=== PATIENT | male | born 1985 | race Two or more races ===

== ENCOUNTER 2018-01-11 06:26 | Emergency (ER) | payer OTHER | END 2018-01-11 08:22 | disposition home or self-care (01) | LOC: ER 06:26 | DX: L55.1 Sunburn of second degree (principal); Y93.89 Activity, other specified; X30.XXXA Exposure to excessive natural heat, initial encounter; Y99.8 Other external cause status; Y92.89 Other specified places as the place of occurrence of the external cause | CPT/HCPCS: 99283 ==

== ENCOUNTER 2018-05-13 16:12 | Emergency (ER) | payer OTHER ==
[~2018-05-13] VITALS: Ht 157.5 cm; Wt 72.6 kg
[~2018-05-13 16:12] MED LIST: PRED50TA PO
--- NOTE | 2018-05-13 16:55 | PHYS DOC ---
Past Medical History Past Medical History: No Pertinent History Past Surgical History: Appendectomy (2013), Other Additional Past Surgical Histo: ABD SX Alcohol Use: None Drug Use: None Adult General Chief Complaint Chief Complaint: ABDOMINAL PAIN HPI HPI Patient is a 32 year old male who presents to the ER with complaints of lower abdominal pain for the last 9 days and a cough with bloody sputum for the last week. The [employer] top cutter line was used to communicate with patient. He denies any recent nose bleeds, fever, sore throat, chest pain, shortness of breath, nausea, vomiting, diarrhea, rectal bleeding, or back pain. PT reports that his stools were normal until yesterday when he had a mucous stool with pus in it. He currently rates his pain as a 7 out of 10 on the pain scale. He denies any dysuria or hematuria, reports increased urinary frequency. He denies any recent travel outside of the [place]. Review of Systems Review of Systems Constitutional: Denies fever or chills [] HENT: Denies nasal congestion or sore throat [] Respiratory: Denies wheezing or shortness of breath, reports cough x1 week with bloody sputum Cardiovascular: Denies chest pain or palpitations GI: Denies nausea, vomiting, bloody stools or diarrhea; reports lower abdominal pain see HPI [] : Denies dysuria or hematuria, reports increased urinary frequency [] Musculoskeletal: Denies back pain or joint pain [] Integument: Denies rash or skin lesions [] Neurologic: Denies headache, focal weakness or sensory changes [] All other systems were reviewed and found to be within normal limits, except as documented in this note. Current Medications Current Medications Current Medications Medications (Trade) Dose Ordered Sig/Curtis Start Time Stop Time Status Last Admin Dose Admin Morphine Sulfate (Morphine Sulfate) 4 mg 1X ONCE 05/13/18 17:15 05/13/18 17:16 DC 05/13/18 17:02 4 MG Ondansetron HCl (Zofran) 4 mg 1X ONCE 05/13/18 17:15 05/13/18 17:16 DC 05/13/18 17:00 4 MG Sodium Chloride 1,000 ml @ 1,000 mls/hr 1X ONCE 05/13/18 17:00 05/13/18 17:59 DC 05/13/18 17:00 1,000 MLS/HR Allergies Allergies Allergies Coded Allergies Type Severity Reaction Last Updated Verified No Known Drug Allergies 01/11/18 No Physical Exam Physical Exam Constitutional: Well developed, well nourished, no acute distress, non-toxic appearance. [] HENT: Normocephalic, atraumatic, bilateral external ears normal, nose normal. [] Eyes: PERRLA, conjunctiva normal, no discharge. [] Cardiovascular:Heart rate regular rhythm, no murmur [] Lungs & Thorax: Bilateral breath sounds clear to auscultation [] Abdomen: Bowel sounds normal, soft, no masses, no pulsatile masses; lower abdominal tenderness to palpation [] Skin: Warm, dry, no erythema, no rash. [] Extremities: No cyanosis, no clubbing, ROM intact, no edema. [] Neurologic: Alert and oriented X 3, normal motor function, normal sensory function, no focal deficits noted. [] Psychologic: Affect normal, judgement normal, mood normal. [] Current Patient Data Vital Signs Vital Signs Date Time Temp Pulse Resp B/P (MAP) Pulse Ox O2 Delivery O2 Flow Rate FiO2 05/13/18 19:01 72 16 117/73 (88) 98 Room Air 05/13/18 16:29 97.8 97.8 Lab Values Laboratory Tests Test 05/13/18 16:45 05/13/18 16:55 White Blood Count 9.7 x10^3/uL (4.0-11.0) Red Blood Count 5.91 x10^6/uL (4.30-5.70) H Hemoglobin 17.5 g/dL (13.0-17.5) Hematocrit 49.4 % (39.0-53.0) Mean Corpuscular Volume 84 fL (79-100) Mean Corpuscular Hemoglobin 30 pg (25-35) Mean Corpuscular Hemoglobin Concent 36 g/dL (31-37) Red Cell Distribution Width 12.7 % (11.5-14.5) Platelet Count 290 x10^3/uL (140-400) Neutrophils (%) (Auto) 63 % (31-73) Lymphocytes (%) (Auto) 22 % (24-48) L Monocytes (%) (Auto) 11 % (0-9) H Eosinophils (%) (Auto) 3 % (0-3) Basophils (%) (Auto) 1 % (0-3) Neutrophils # (Auto) 6.2 x10^3uL (1.8-7.7) Lymphocytes # (Auto) 2.2 x10^3/uL (1.0-4.8) Monocytes # (Auto) 1.1 x10^3/uL (0.0-1.1) Eosinophils # (Auto) 0.3 x10^3/uL (0.0-0.7) Basophils # (Auto) 0.1 x10^3/uL (0.0-0.2) Sodium Level 138 mmol/L (136-145) Potassium Level 3.6 mmol/L (3.5-5.1) Chloride Level 101 mmol/L (98-107) Carbon Dioxide Level 26 mmol/L (21-32) Anion Gap 11 (6-14) Blood Urea Nitrogen 11 mg/dL (8-26) Creatinine 0.8 mg/dL (0.7-1.3) Estimated GFR (Cockcroft-Gault) 112.0 BUN/Creatinine Ratio 14 (6-20) Glucose Level 99 mg/dL (70-99) Calcium Level 9.4 mg/dL (8.5-10.1) Total Bilirubin 0.8 mg/dL (0.2-1.0) Aspartate Amino Transferase (AST) 22 U/L (15-37) Alanine Aminotransferase (ALT) 33 U/L (16-63) Alkaline Phosphatase 106 U/L (46-116) Total Protein 8.4 g/dL (6.4-8.2) H Albumin 3.9 g/dL (3.4-5.0) Albumin/Globulin Ratio 0.9 (1.0-1.7) L Urine Collection Type Clean catch Urine Color Yellow Urine Clarity Clear Urine pH 6.5 Urine Specific H[place]t 1.025 Urine Protein Negative mg/dL (NEG-TRACE) Urine Glucose (UA) Negative mg/dL (NEG) Urine Ketones (Stick) Negative mg/dL (NEG) Urine Blood Negative (NEG) Urine Nitrite Negative (NEG) Urine Bilirubin Negative (NEG) Urine Urobilinogen Dipstick 1.0 mg/dL (0.2 mg/dL) Urine Leukocyte Esterase Negative (NEG) Urine RBC Occ /HPF (0-2) Urine WBC 0 /HPF (0-4) Urine Squamous Epithelial Cells Occ /LPF Urine Bacteria 0 /HPF (0-FEW) Urine Mucus Marked /LPF Laboratory Tests 05/13/18 16:45 Laboratory Tests 05/13/18 16:45 EKG EKG [] Radiology/Procedures Radiology/Procedures PROCEDURE: CT ABDOMEN PELVIS WO CONTRAST CT Abdomen and Pelvis without contrast History: Abdominal pain, watery and mucous stools Technique: Noncontrast CT imaging was performed of the abdomen and pelvis. Multiplanar images are reviewed. Exposure: One or more of the following individualized dose reduction techniques were utilized for this examination: 1. Automated exposure control 2. Adjustment of the mA and/or kV according to patient size 3. Use of iterative reconstruction technique. Comparison: None Findings: There is right lower lobe granuloma. Accurate evaluation of abdominal visceral organs is limited without intravenous contrast. There is no obvious abnormality of the spleen, liver, or pancreas. Gallbladder is present without obvious intraluminal abnormality by CT. There is no adrenal nodularity. No urolithiasis or hydronephrosis is identified. No significantly enlarged nodes are identified. Accurate evaluation of bowel is limited without oral contrast. Bowel is not significantly dilated. Appendix is not confidently identified if still present, no significant pericecal inflammatory type change. Wall thickening of the mid to distal sigmoid wall to the rectum is not excluded on this exam, this segment of bowel more collapsed. There is no free fluid or free air. There are a few small nonspecific mesenteric nodes most numerous right lower quadrant. Impression: 1. Mild wall thickening of the mid to distal sigmoid colon to rectum is not excluded as can be seen with mild proctocolitis although this segment of bowel collapsed, no significant inflammatory change. Appendix is not confidently identified if still present, no significant pericecal inflammatory type change. PROCEDURE: CHEST PA & LATERAL CHEST PA LATERAL dated 05/13/2018 5:27 PM. Comparison: 06/18/2015 Clinical Indication: COUGH X1 WEEK WITH BLOOD SPUTUM. Findings: PA and lateral views obtained. Heart and mediastinal contours are stable. Lung volumes are low, limiting evaluation. There are some patchy and linear opacities at the perihilar regions, unchanged. Calcified granuloma at the right lung base. No new infiltrate or pleural effusion. No pneumothorax. Impression: 1. Patchy perihilar linear opacities, similar to prior study. This could be related to recurrent atelectasis or scarring. 2. No new abnormality. [] Course & Med Decision Making Course & Med Decision Making Pertinent Labs and Imaging studies reviewed. (See chart for details) Dx: Colitis DDx: pyelonephritis, kidney stone, bowel obstruction, UTI Pt was given 1L NS, 4 mg zofran and 4 mg morphine IV in the department, he denied any pain after these medications. Prescriptions for Flagyl and Cipro written. Follow up with PCP this week, return to ER if symptoms worsen. The [facility] top cutter line was used to discuss findings and instructions with patient. Patient verbalized an understanding of home care, medications, follow- up, and return to ED instructions and was in agreement with the plan of care. [] Dragon Disclaimer Dragon Disclaimer This electronic medical record was generated, in whole or in part, using a voice recognition dictation system. Departure Departure Impression: Primary Impression: Colitis Disposition: HOME, SELF-CARE Condition: IMPROVED Referrals: CAESAR CHRISTIAN MD (PCP) Patient Instructions: Colitis Additional Instructions: Fill the prescriptions and use as directed. Follow up with your primary care doctor this week. Return to the ER if your symptoms worsen. Scripts Metronidazole (METRONIDAZOLE) 500 Mg Tablet 1 TAB PO TID, #30 TAB Prov: MANJINDER KU CLOUD SOFTWARE ENGINEER 05/13/18 Ciprofloxacin Hcl (CIPRO) 500 Mg Tablet 1 TAB PO BID, #20 TAB Prov: MANJINDER KU CLOUD SOFTWARE ENGINEER 05/13/18 MANJINDER KU [employer]D SOFTWARE ENGINEER May 13, 2018 16:55
[2018-05-13 16:59] LABS: BILIRUBIN,URINE NEGATIVE (NEG); CLARITY,URINE CLEAR; COLOR,URINE YELLOW; NITRITE,URINE NEGATIVE (NEG); PH,URINE 6.5; PROTEIN,URINE NEGATIVE (NEG-TRACE)
[2018-05-13] MEDS ORDERED: IV NORMAL SALINE 1000ML BAG 1,000 ML IV ONE (17:00)
[2018-05-13 17:02] LABS: BASO # 0.1 x10^3/uL (0.0-0.2); BASO % 1 % (0-3); EOS # 0.3 x10^3/uL (0.0-0.7); EOS % 3 % (0-3); HEMATOCRIT 49.4 % (39.0-53.0); HEMOGLOBIN 17.5 g/dL (13.0-17.5); LYMPH # 2.2 x10^3/uL (1.0-4.8); LYMPH % 22 % (24-48); MEAN CORPUSCULAR HEMOGLOBIN 30 pg (25-35); MEAN CORPUSCULAR HGB CONC 36 g/dL (31-37); MEAN CORPUSCULAR VOLUME 84 fL (79-100); MONO # 1.1 x10^3/uL (0.0-1.1); MONO % 11 % (0-9); NEUT # 6.2 x10^3uL (1.8-7.7); NEUT % 63 % (31-73); PLATELET COUNT 290 x10^3/uL (140-400); RED BLOOD COUNT 5.91 x10^6/uL (4.30-5.70); RED CELL DISTRIBUTION WIDTH 12.7 % (11.5-14.5); WHITE BLOOD COUNT 9.7 x10^3/uL (4.0-11.0)
[2018-05-13 17:07] LABS: CALCIUM 9.4 mg/dL (8.5-10.1); CREATININE 0.8 mg/dL (0.7-1.3); POTASSIUM 3.6 mmol/L (3.5-5.1)
[2018-05-13 17:08] LABS: BACTERIA,URINE 0 /HPF (0-FEW); RBC,URINE OCC /HPF (0-2); SQUAMOUS EPITHELIAL CELL,UR OCC /LPF; WBC,URINE 0 /HPF (0-4)
[2018-05-13 17:13] LABS: ALBUMIN 3.9 g/dL (3.4-5.0); ALBUMIN/GLOBULIN RATIO 0.9 (1.0-1.7); TOTAL BILIRUBIN 0.8 mg/dL (0.2-1.0); TOTAL PROTEIN 8.4 g/dL (6.4-8.2)
[2018-05-13] MEDS ORDERED: MORPHINE SULFATE 4 MG/ML VIAL. IV ONE (17:15)
[2018-05-13] MEDS ORDERED: ONDANSETRON PF 4 MG/2 ML VIAL. IV ONE (17:15)
--- NOTE | 2018-05-13 17:44 | RAD ---
CT Abdomen and Pelvis without contrast History: Abdominal pain, watery and mucous stools Technique: Noncontrast CT imaging was performed of the abdomen and pelvis. Multiplanar images are reviewed. Exposure: One or more of the following individualized dose reduction techniques were utilized for this examination: 1. Automated exposure control 2. Adjustment of the mA and/or kV according to patient size 3. Use of iterative reconstruction technique. Comparison: None Findings: There is right lower lobe granuloma. Accurate evaluation of abdominal visceral organs is limited without intravenous contrast. There is no obvious abnormality of the spleen, liver, or pancreas. Gallbladder is present without obvious intraluminal abnormality by CT. There is no adrenal nodularity. No urolithiasis or hydronephrosis is identified. No significantly enlarged nodes are identified. Accurate evaluation of bowel is limited without oral contrast. Bowel is not significantly dilated. Appendix is not confidently identified if still present, no significant pericecal inflammatory type change. Wall thickening of the mid to distal sigmoid wall to the rectum is not excluded on this exam, this segment of bowel more collapsed. There is no free fluid or free air. There are a few small nonspecific mesenteric nodes most numerous right lower quadrant. Impression: 1. Mild wall thickening of the mid to distal sigmoid colon to rectum is not excluded as can be seen with mild proctocolitis although this segment of bowel collapsed, no significant inflammatory change. Appendix is not confidently identified if still present, no significant pericecal inflammatory type change. Electronically signed by: Taz Jackson MD (05/13/2018 5:41 PM) [facility]
[2018-05-13] MEDS ORDERED: METR500T8 PO (18:31)
[2018-05-13] MEDS ORDERED: CIPR500T94 PO (18:31)
--- NOTE | 2018-05-13 18:51 | RAD ---
CHEST PA LATERAL dated 05/13/2018 5:27 PM. Comparison: 06/18/2015 Clinical Indication: COUGH X1 WEEK WITH BLOOD SPUTUM. Findings: PA and lateral views obtained. Heart and mediastinal contours are stable. Lung volumes are low, limiting evaluation. There are some patchy and linear opacities at the perihilar regions, unchanged. Calcified granuloma at the right lung base. No new infiltrate or pleural effusion. No pneumothorax. Impression: 1. Patchy perihilar linear opacities, similar to prior study. This could be related to recurrent atelectasis or scarring. 2. No new abnormality. Electronically signed by: Nicholas Alanis MD (05/13/2018 6:48 PM) [facility]
[2018-05-13 19:01] VITALS: BP 117/73
== END 2018-05-13 18:53 | disposition home or self-care (01) ==
LOC: ER 16:12
DX: K52.9 Noninfective gastroenteritis and colitis, unspecified (principal); Z90.89 Acquired absence of other organs
CPT/HCPCS: 36415; 71046; 74176; 80053; 81001; 85025; 96361; 96374; 96375; 99285; J2270; J2405; J7030

== ENCOUNTER 2019-06-15 08:21 | Emergency (ER) | payer OTHER ==
[~2019-06-15] VITALS: Ht 157.5 cm; Wt 63.5 kg
[~2019-06-15 08:21] MED LIST changes: +CIPR500T94 PO; +METR-34 PO
[2019-06-15 08:32] VITALS: BP 102/64
[2019-06-15] MEDS ORDERED: IPRATRPIUM/ALBUTEROL 0.5/2.5MG 3 ML NEBU. NEB ONE (08:45)
--- NOTE | 2019-06-15 09:14 | PHYS DOC ---
Past Medical History Past Medical History: No Pertinent History Past Surgical History: Appendectomy, Other Additional Past Surgical Histo: ABD SX Alcohol Use: None Drug Use: None Adult General Chief Complaint Chief Complaint: COUGH HPI HPI Patient is a 34 year old non-Belarusian speaking male without history of medical problem who presents with complaining of coughing blood. Patient complaining of productive cough with bright red sputum for the last one month associated with generalized weakness, night sweats and chills, losing weight. Patient denies chest pain, fever, sore throat, earache, myalgia, sick contact. Patient immigrated to this country 4.5 years ago and does not know what the meaning of tuberculoses. Review of Systems Review of Systems Constitutional: Denies fever, reports chills [] Eyes: Denies change in visual acuity, redness, or eye pain [] HENT: Denies nasal congestion or sore throat [] Respiratory: Reports cough and shortness of breath Cardiovascular: No additional information not addressed in HPI [] GI: Denies abdominal pain, nausea, vomiting, bloody stools or diarrhea [] : Denies dysuria or hematuria [] Musculoskeletal: Denies back pain or joint pain [] Integument: Denies rash or skin lesions [] Neurologic: Denies headache, focal weakness or sensory changes [] Endocrine: Denies polyuria or polydipsia [] All other systems were reviewed and found to be within normal limits, except as documented in this note. Current Medications Current Medications Current Medications Medications (Trade) Dose Ordered Sig/Curtis Start Time Stop Time Status Last Admin Dose Admin Albuterol/ Ipratropium (Duoneb) 3 ml 1X ONCE 06/15/19 08:45 06/15/19 08:46 DC 06/15/19 08:52 3 ML Benzonatate (Tessalon Perle) 100 mg 1X ONCE 06/15/19 09:15 06/15/19 09:16 DC 06/15/19 09:31 100 MG Allergies Allergies Allergies Coded Allergies Type Severity Reaction Last Updated Verified No Known Drug Allergies 01/11/18 No Physical Exam Physical Exam Constitutional: Well developed, well nourished, mild distress, non-toxic appearance. [] HENT: Normocephalic, atraumatic, bilateral external ears normal, oropharynx mois t, no oral exudates, nose normal. [] Eyes: PERRLA, EOMI, conjunctiva normal, no discharge. [] Neck: Normal range of motion, no tenderness, supple, no stridor. [] Cardiovascular:Heart rate regular rhythm, no murmur [] Lungs & Thorax: Bilateral breath sounds clear to auscultation [] Abdomen: Bowel sounds normal, soft, no tenderness, no masses, no pulsatile masses. [] Skin: Warm, dry, no erythema, no rash. [] Back: No tenderness, no CVA tenderness. [] Extremities: No tenderness, no cyanosis, no clubbing, ROM intact, no edema. [] Neurologic: Alert and oriented X 3, normal motor function, normal sensory function, no focal deficits noted. [] Psychologic: Affect normal, judgement normal, mood normal. [] Current Patient Data Vital Signs Vital Signs Date Time Temp Pulse Resp B/P (MAP) Pulse Ox O2 Delivery O2 Flow Rate FiO2 06/15/19 08:52 97 Room Air 06/15/19 08:32 97.5 73 18 102/64 (77) 97.5 EKG EKG [] Radiology/Procedures Radiology/Procedures [][facility] [address] [place] [address] IMAGING REPORT Signed PATIENT: ELICIA BARRETT ACCOUNT: [id number] : 1985 LOCATION: ER AGE: 34 SEX: M EXAM STATUS: REG ER ORD. PHYSICIAN: ABIGAIL WEBBER MD REASON: cough for one month with hemoptysis, TB? PROCEDURE: CHEST PA & LATERAL Chest PA and lateral: Reason for examination: Cough for one month with hemoptysis. Possible TB. Comparison is made to previous study dated 05/13/2018. The heart size is normal. Mediastinum is unremarkable. Lung madrigal again show a calcified granuloma at the right lung base which is unchanged. There continue to be some increased markings in the right perihilar region which is unchanged and may represent some scarring. No new consolidative infiltrates or pleural effusions are seen. No acute bony abnormalities are seen. Impression: Chronic appearing changes in the right perihilar region without interval change. No acute cardiopulmonary disease. Electronically signed by: Ignacia Wkaefield MD (06/15/2019 9:35 AM) [facility] DICTATED and SIGNED BY: IGNACIA WAKEFIELD MD DATE: 06/15/19 0939 Course & Med Decision Making Course & Med Decision Making Pertinent Imaging studies reviewed. (See chart for details) Evaluation of patient in ER showed 34-year-old immigrant male patient with cough and hemoptysis with chest x-ray showed calcified granuloma without pneumonia. Patient was advised to follow up with Public health department for evaluation of tuberculosis and prescription for antibiotic and pro-air and Tessalon was given. Patient was advised to wear mask until cleared for tuberculosis. Dragon Disclaimer Dragon Disclaimer This electronic medical record was generated, in whole or in part, using a voice recognition dictation system. Departure Departure Impression: Primary Impression: Bronchitis Additional Impressions: Hemoptysis Abnormal chest x-ray Disposition: HOME, SELF-CARE (at 0942) Condition: IMPROVED Referrals: CAESAR CHRISTIAN MD (PCP) Patient Instructions: Bronchitis, Hemoptysis, TB (Tuberculosis) Theresa Test Additional Instructions: Drink plenty of liquids Follow-up with your primary care physician in 2-3 days Return to ER if not getting better Follow-up with public health department for evaluation for tuberculosis and possible blood ot skin test for tuberculosis wearing mask until cleared for tuberculosis Scripts Benzonatate (TESSALON PERLE) 100 Mg Capsule 1 CAP PO TID for cough, #21 CAP Prov: ABIGAIL WEBBER MD 06/15/19 Albuterol Sulfate (PROAIR HFA INHALER) 8.5 Gm Hfa.aer.ad 2 PUFF IH PRN Q4-6HRS PRN for wheezing for 21 Days, #1 INHALER 0 Refills Prov: ABIGAIL WEBBER MD 06/15/19 Amoxicillin/Potassium Clav (AUGMENTIN 875-125 TABLET) 1 Each Tablet 1 TAB PO Q12HR, #20 TAB Prov: ABIGAIL WEBBER MD 06/15/19 Problem Qualifiers ABIGAIL WEBBER MD Jun 15, 2019 09:14
[2019-06-15] MEDS ORDERED: BENZONATATE 100 MG CAPSULE. PO ONE (09:15)
--- NOTE | 2019-06-15 09:38 | RAD ---
Chest PA and lateral: Reason for examination: Cough for one month with hemoptysis. Possible TB. Comparison is made to previous study dated 05/13/2018. The heart size is normal. Mediastinum is unremarkable. Lung madrigal again show a calcified granuloma at the right lung base which is unchanged. There continue to be some increased markings in the right perihilar region which is unchanged and may represent some scarring. No new consolidative infiltrates or pleural effusions are seen. No acute bony abnormalities are seen. Impression: Chronic appearing changes in the right perihilar region without interval change. No acute cardiopulmonary disease. Electronically signed by: Ignacia So MD (06/15/2019 9:35 AM) [facility]
[2019-06-15] MEDS ORDERED: ALBU2.5V8 IH (09:46)
[2019-06-15] MEDS ORDERED: AMOX1TAB61 PO (09:46)
[2019-06-15] MEDS ORDERED: BENZ100C PO (09:46)
== END 2019-06-15 09:58 | disposition home or self-care (01) ==
LOC: ER 08:21
DX: J40 Bronchitis, not specified as acute or chronic (principal); R04.2 Hemoptysis; R91.8 Other nonspecific abnormal finding of lung field
CPT/HCPCS: 71046; 94640; 99284; J7620

== ENCOUNTER 2020-11-29 13:03 | Emergency (ER) | payer OTHER ==
[~2020-11-29] VITALS: Ht 157.5 cm; Wt 77.0 kg
[~2020-11-29 13:03] MED LIST changes: +ALBU2.5V8 IH; +AMOX1TAB61 PO; +BENZ100C PO
[2020-11-29] MEDS ORDERED: FAMOTIDINE 20 MG/2 ML VIAL IVP ONE (13:45)
[2020-11-29] MEDS ORDERED: diphenhydrAMINE 50 MG/ML VIAL IVP ONE (13:45)
[2020-11-29] MEDS ORDERED: methylPREDNISolone SOD SUCC PF 125 MG/2 ML VIAL. IV ONE (13:45)
[2020-11-29] MEDS ORDERED: IV NORMAL SALINE 1000ML BAG 1,000 ML IV ONE (13:45)
[2020-11-29] MEDS ORDERED: DIPH25TA64 PO (14:00)
[2020-11-29] MEDS ORDERED: FAMO-63 PO (14:00)
[2020-11-29] MEDS ORDERED: METH4TAB2 PO (14:00)
--- NOTE | 2020-11-29 14:00 | PHYS DOC ---
Past Medical History Past Medical History: No Pertinent History Past Surgical History: Appendectomy, Other Additional Past Surgical Histo: ABD SX, "NECK SX" Smoking Status: Never Smoker Alcohol Use: None Drug Use: None General Adult EDM: Chief Complaint: ALLERGIC REACTION HPI: HPI: Patient is a 35 year old male who presents with was out in the weeds around a pond yesterday and he began having a generalized rash to his arms, legs and to the upper chest is very itchy. He did not take any medication to help his symptoms. Patient denies shortness of breath, throat itching, mouth swelling, tongue swelling, chest pain, abdominal pain, vomiting, nausea, dizziness, cough, new soaps, new medications. Denies past medical history. Denies any pain. Review of Systems: Review of Systems: Constitutional: Denies fever or chills. [] Eyes: Denies change in visual acuity. [] HENT: Denies nasal congestion or sore throat. [] Respiratory: Denies cough or shortness of breath. [] Cardiovascular: Denies chest pain or edema. [] GI: Denies abdominal pain, nausea, vomiting, bloody stools or diarrhea. [] : Denies dysuria. [] Musculoskeletal: Denies back pain or joint pain. [] Integument: +Generalized body rash. [] Neurologic: Denies headache, focal weakness or sensory changes. [] Endocrine: Denies polyuria or polydipsia. [] Lymphatic: Denies swollen glands. [] Psychiatric: Denies depression or anxiety. [] Heart Score: C/O Chest Pain: No Risk Factors: Risk Factors: DM, Current or recent (<one month) smoker, HTN, HLP, family history of CAD, obesity. Risk Scores: Score 0 - 3: 2.5% MACE over next 6 weeks - Discharge Home Score 4 - 6: 20.3% MACE over next 6 weeks - Admit for Clinical Observation Score 7 - 10: 72.7% MACE over next 6 weeks - Early Invasive Strategies Current Medications: Current Medications Medications (Trade) Dose Ordered Sig/Curtis Start Time Stop Time Status Last Admin Dose Admin Diphenhydramine HCl (Benadryl) 25 mg 1X ONCE 11/29/20 13:45 11/29/20 13:46 DC 11/29/20 13:50 25 MG Famotidine (Pepcid Vial) 20 mg 1X ONCE 11/29/20 13:45 11/29/20 13:46 DC 11/29/20 13:50 20 MG Methylprednisolone Sodium Succinate (SOLU-Medrol 125MG VIAL) 125 mg 1X ONCE 11/29/20 13:45 11/29/20 13:46 DC 11/29/20 13:50 125 MG Sodium Chloride 1,000 ml @ 1,000 mls/hr 1X ONCE 11/29/20 13:45 11/29/20 14:44 11/29/20 13:50 1,000 MLS/HR Allergies: Allergies: Allergies Coded Allergies Type Severity Reaction Last Updated Verified No Known Drug Allergies 01/11/18 No Physical Exam: PE: Constitutional: Well developed, well nourished, no acute distress, non-toxic appearance. [] HENT: Normocephalic, atraumatic, bilateral external ears normal, oropharynx moist, no oral exudates, nose normal. [] Eyes: PERRLA, EOMI, conjunctiva normal, no discharge. [] Neck: Normal range of motion, no tenderness, supple, no stridor. [] Cardiovascular:Heart rate regular rhythm, no murmur [] Lungs & Thorax: Bilateral breath sounds clear to auscultation [] Abdomen: Bowel sounds normal, soft, no tenderness, no masses, no pulsatile masses. [] Skin: Warm, dry, no erythema, generalized allergic dermatitis rash to extremities and upper chest and neck area. [] Back: No tenderness, no CVA tenderness. [] Extremities: No tenderness, no cyanosis, no clubbing, ROM intact, no edema. [] Neurologic: Alert and oriented X 3, normal motor function, normal sensory function, no focal deficits noted. [] Psychologic: Affect normal, judgement normal, mood normal. [] Current Patient Data: Vital Signs: Vital Signs Date Time Temp Pulse Resp B/P (MAP) Pulse Ox O2 Delivery O2 Flow Rate FiO2 11/29/20 13:44 98.4 82 12 140/77 (98) 95 Room Air 98.4 EKG: EKG: [] Radiology/Procedures: Radiology/Procedures: [] Course & Med Decision Making: Course & Med Decision Making Pertinent Labs and Imaging studies reviewed. (See chart for details) See HPI. Patient has a generalized allergic contact dermatitis type rash to his arms, legs and upper chest and neck area. There is no facial swelling, tongue swelling or throat swelling. Uvula midline. Lungs are clear to auscultate in all lobes. Skin pink warm and dry. Cap refill less than 2 seconds. Vital signs are within normal limits. Speaks in full clear sentences. No extremity swelling. No swelling to the throat. Patient receiving Solu-Medrol, Pepcid, Benadryl in the ED. After a hour of observation the patient states he is feeling much better. He will be sent home with a Medrol Dosepak, Benadryl and Pepcid for the next 5 days. [] Dragon Disclaimer: Dragon Disclaimer: This electronic medical record was generated, in whole or in part, using a voice recognition dictation system. Departure Departure Impression: Primary Impression: Contact dermatitis Qualified Codes: L23.7 - Allergic contact dermatitis due to plants, except food Disposition: HOME / SELF CARE / HOMELESS Condition: STABLE Referrals: CAESAR CHRISTIAN MD (PCP) Patient Instructions: Allergies, Generic, Contact Dermatitis Additional Instructions: Follow-up with primary care provider if needed. Take medications as prescribed and with food. If you get having severe shortness of breath or for like your throat is swelling you need to return to the emergency room. Scripts Diphenhydramine Hcl (BENADRYL ALLERGY) 25 Mg Tablet 1 TAB PO Q6HRS for 5 Days, #20 TAB 0 Refills Prov: DAYAN ZENG [employer] 11/29/20 Famotidine (PEPCID) 20 Mg Tablet 20 MG PO BID, #10 TAB Prov: DAYAN [employer]ENG [employer] 11/29/20 Methylprednisolone (MEDROL) 4 Mg Tab.ds.pk 1 PKG PO UD, #1 PKG START 11/29/20 Prov: DAYAN [employer]ENG [employer] 11/29/20 DAYAN [employer]ENG [employer] November 29, 2020 14:00
[2020-11-29 15:00] VITALS: BP 118/71
== END 2020-11-29 15:33 | disposition home or self-care (01) ==
LOC: ER 13:03
DX: L23.7 Allergic contact dermatitis due to plants, except food (principal)
CPT/HCPCS: 96361; 96374; 96375; 99284; J1200; J2930; J3490; J7030